=== PATIENT | female | born 1940 | race Caucasian/White ===

== ENCOUNTER 2016-07-26 12:34 | Day surgery (SDC) | payer MEDICARE, BC ==
--- OUTSIDE RECORDS SUMMARY | 2016-07-26 12:38 | XMS REPORT | Continuity of Care Document ---
:1940 Author Organization [facility] ([facility]) Address [address] [place] [address] Phone [phone] Care Team Providers Name Role Phone Hayde Singh Primary Care Provider [phone] Source Comments This disclosure is being made pursuant to the Care Everywhere program, applicable federal and state laws, and may not contain all informaitonavailable regarding this patient.[facility] ([facility]) Active Allergies and Adverse Reactions Allergen Noted Date Severity Reactions Comments Prochlorperazine Edisylate 11/20/2014 OTHER Current Medications Prescription Sig. Disp. Refills Start Date End Date Status amLODIPine 10 mg Take 1 Tab by 06/07/2011 Active tablet mouth daily aspirin, buffered 81 take 1 tablet 06/07/2011 Active mg tablet (81MG) by oral route every day atenolol 25 mg tablet Take 1 Tab by 02/11/2014 Active mouth daily estrogens, conjugated take 1 tablet by 02/12/2013 Active (PREMARIN) 0.3 mg oral route every tablet day furosemide 20 mg Take 1 Tab by 04/29/2014 Active tablet mouth daily levothyroxine 175 mcg 200 mcg take 1 02/12/2013 Active tablet tablet by oral route every day olmesartan (BENICAR) take 1 tablet 09/08/2009 Active 40 mg tablet (40MG) by ORAL route every day omeprazole (PriLOSEC take 1 capsule 06/07/2011 Active OTC) 20 mg EC tablet (40MG) by oral route every day before a meal beclomethasone (QVAR) inhale 2 puff by 02/12/2013 Active 80 mcg/Actuation inhalation route 2 inhaler times every day sulfaSALAzine 500 mg take 1 tablet 08/17/2009 Active tablet (500MG) by ORAL route 4 times every day after meals warfarin 5 mg tablet take 1 tablet 06/09/2011 Active (5MG) by oral route every day nitroglycerin 0.4 mg One tab under 25 tablet 5 03/30/2015 Active SL tablet tongue for chest pain; may repeat every 5 min up to total of 3 tabs isosorbide mononitrate Take 1 tablet (60 90 tablet 1 10/21/2015 Active (IMDUR) 60 mg CR mg total) by mouth tablet daily. atorvastatin (LIPITOR) Take 1 tablet (40 90 tablet 3 04/18/2016 Active 40 mg tablet mg total) by mouth daily. 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 Hyperlipidemia 12/07/2014 Chronic atrial fibrillation 12/07/2014 Social History Tobacco Use Types Packs/Day Years Used Date Former Smoker Quit: 04/02/2010 Last Filed Vital Signs Vital Sign Reading Time Taken Blood Pressure 140/70 02/09/2016 1:32 PM MICA MINER Pulse 64 02/09/2016 1:32 PM MICA MINER Temperature - - Respiratory Rate - - Height - - Weight 78.019 kg (172 lb) 02/09/2016 1:32 PM MICA MINER Body Mass Index - - Oxygen Saturation - - Plan of Care Date Type Specialty Providers Description 02/21/2017 Appointment Heart and Vascular Francisco Magana, Chief Comp: Patient MD Reported Reason For [address] Visit [place] [phone] (Fax) Health Maintenance Due Date Last Done Comments Hepatitis B Vaccine (1 of 3 - Primary Series) 1940 Tdap Vaccine 1952 Lipid Disorder Screening 08/27/1959 Td Vaccine 08/27/1959 Mammogram 1981 Colonoscopy 1991 Zoster Vaccine 2001 Osteoporosis Screening (DXA Bone Density) 2006 Pneumococcal Vaccine (1 of 2 - PCV13) 2006 Influenza Vaccine: Seasonal (#1) 11/01/2015 Results from Last 3 Months Not on file
--- NOTE | 2016-07-26 14:21 | OR ---
Operative Report - Dictated Report Narrative: Location: Main OR Anesthesia: None Preoperative Diagnosis: Gross hematuria Postoperative Diagnosis: Same Procedure: #1 flexible cystoscopy with washing for cytology Indications: 75-year-old female with gross hematuria. Presents for cystoscopy and cytology to evaluate bladder Description: Consent obtained. Placed in the frog-leg position. Prepped and draped. Time-out taken . Scope inserted into the urethra and navigated to the bladder. Introitus is narrow and urethra is slightly angulated. No tumors stones or suspicious lesions. pristine mucosa. No real trabeculation. Washing was obtained sent for cytology. Ureters normal in number and position Normal bladder neck Normal urethra with the exception of some angulation and some small plastic polyps which are benign EBL: 0 Specimen: none Condition: tolerate procedure Important Findings: Normal bladder. Slight angulation to urethra with some benign hyperplastic polyps. Narrowed introitus but otherwise normal sternal genitalia. FOLLOW UP: She will remain on tolterodine ER 4 mg. I will see her back in 6 weeks with urinalysis
[2016-07-26 14:24] LABS: Urine Bilirubin Negative (NEGATIVE); Urine Ketone Negative (NEGATIVE); Urine Nitrite Negative (NEGATIVE); Urine Protein Negative (NEGATIVE); Urine Urobilinogen Normal (NORMAL); Urine pH 5.5 pH (5.0-7.0)
[2016-07-26 14:26] VITALS: BP 118/79
[2016-07-26 14:41] LABS: Urine Appearance Clear; Urine Bacteria None Seen; Urine Blood 10 /ul (NEGATIVE); Urine Color Yellow; Urine RBC None Seen /hpf (0-5); Urine WBC None Seen /hpf (0-5)
== END 2016-07-26 12:35 | disposition home or self-care (01) ==
LOC: AMB 12:34
PROVIDERS: ATTEND Urology
PROC: 3E1K88X Irrigation of Genitourinary Tract using Irrigating Substance, Via Natural or Artificial Opening Endoscopic, Diagnostic (ICD-10-PCS; 2016-07-26)
PROC: 0TJB8ZZ Inspection of Bladder, Via Natural or Artificial Opening Endoscopic (ICD-10-PCS; principal; 2016-07-26 13:45)
DX: N36.2 Urethral caruncle (principal); R31.0 Gross hematuria; I10 Essential (primary) hypertension; E03.9 Hypothyroidism, unspecified; I48.91 Unspecified atrial fibrillation; Z87.891 Personal history of nicotine dependence

== ENCOUNTER 2017-01-01 18:43 | Emergency (ER) | payer MEDICARE, BC ==
[2017-01-01 20:13] LABS: Hematocrit 34.8 % (37.0-47.0); Hemoglobin 12.1 gm/dL (12.5-16.0); Mean Cell Volume 91.3 fl (78-100); Mean Corpuscular Hemoglobin 31.8 pg (27-31); Mean Corpuscular Hgb Conc 34.8 g/dl (32-36); Mean Platelet Volume 11.2 fl (6.0-9.5); Neutrophil # 3.6 K/mm3 (1.3-6.0); Neutrophil % 56.1 % (42-75.0); Platelet Count 153 K/mm3 (150-450); Red Blood Count 3.81 M/mm3 (4.2-5.4); Red Cell Distribution Width 12.5 % (11.5-14.0); White Blood Count 6.4 K/mm3 (4.0-10.5)
[2017-01-01 20:22] LABS: Prothrombin Time (Patient) 28.8 Seconds (9.4-11.4)
[2017-01-01 20:23] LABS: INR 2.77 INR (0.90-1.10)
[2017-01-01 20:30] LABS: ALT 40 U/L (19-67); AST 38 U/L (0-48); Albumin * 3.9 gm/dl (3.4-5.0); Alkaline Phosphatase * 72 U/L (50-170); Anion Gap 9.4 mmol/L (6.8-13.8); BUN/Creatinine Ratio 15.6 (9.0-21.6); Bilirubin, Total 0.4 mg/dL (0.0-1.1); Blood Urea Nitrogen 19 mg/dL (3-23); Ca. Corrected For Albumin 8.8 mg/dL (8.4-10.2); Carbon Dioxide 27.9 mmol/L (24-32.6); Chloride 104 mmol/L (97-106); Glucose * 102 mg/dL (70-110); Potassium 4.3 mmol/L (3.4-4.6); Sodium 137 mmol/L (132-142); Total Protein 7.3 gm/dL (6.2-8.2); Troponin I Less than 0.017 ng/ml (0.00-0.10)
--- NOTE | 2017-01-01 20:30 | ERNOTE ---
Medical Problem HPI - General Chief Complaint: General Assessment Time Seen by Provider: 01/01/17 20:17 Source: patient Exam Limitations: no limitations - Immun/Allergies/Home Medications Immunizations: IMMUNIZATION HX Immunizations Up to Date Yes History of Influenza Vaccine Yes Hx Pneumococcal Vaccination Yes Allergies/Adverse Reactions: Allergies metronidazole [From Flagyl] Allergy (Severe, Verified 01/01/17 19:09) unknown Metronidazole HCl [From Flagyl] Allergy (Severe, Verified 01/01/17 19:09) unknown prochlorperazine edisylate [From Compazine] Allergy (Severe, Verified 01/01/17 19:09) Anaphylaxis seizures prochlorperazine maleate [From Compazine] Allergy (Severe, Verified 01/01/17 19: 09) Anaphylaxis seizures Home Medications: HOME MEDICATIONS Aspirin 81 mg PO DAILY 01/01/17 [Last Taken Unknown] Atenolol [Tenormin] 25 mg PO BID 01/01/17 [Last Taken Unknown] Atorvastatin Calcium 40 mg PO HS 01/01/17 [Last Taken Unknown] Ca/D3/Mag Ox/Zinc/Energy Specialist/Xander/Bor [Calcium 600+D3 Plus Caplet] 1 each PO DAILY 05/19 [Last Taken Unknown] Estrogens, Conjugated [Premarin] 0.3 mg PO DAILY 01/01/17 [Last Taken Unknown] Furosemide 20 mg PO DAILY 01/01/17 [Last Taken Unknown] Isosorbide Mononitrate [Imdur] 60 mg PO DAILY 01/01/17 [Last Taken Unknown] Levothyroxine Sodium [Synthroid] 200 mcg PO DAILY 01/01/17 [Last Taken Unknown] Losartan Potassium [Cozaar] 100 mg PO DAILY 01/01/17 [Last Taken Unknown] Multivitamin [One Daily Multivitamin] 1 each PO DAILY 01/01/17 [Last Taken Unknown] Omeprazole 40 mg PO DAILY 01/01/17 [Last Taken Unknown] Warfarin Sodium [Coumadin] 4 mg PO Q48H 01/01/17 [Last Taken Unknown] Warfarin Sodium [Coumadin] 5 mg PO Q48H 01/01/17 [Last Taken Unknown] amLODIPine BESYLATE [Norvasc] 10 mg PO DAILY 01/01/17 [Last Taken Unknown] sulfaSALAzine [Azulfidine] 500 mg PO QID 01/01/17 [Last Taken Unknown] - History of Present History Narrative: Pt reports dizziness that began yesterday, feeling off balance and "swimmy" but not spinning. Worsened this afternoon and she presented to ED. Timing: getting worse Severity: moderate Modifying Factors - (Improves): Present: rest Modifying Factors - (Worsens): Present: movement Review of Systems - Review of Systems Constitutional: Absent: recent illness EYE: Absent: blurred vision ENT: Present: no symptoms reported Respiratory: Absent: shortness of breath Cardiology: Absent: chest pain, edema Gastrointestinal/Abdominal: Absent: nausea, vomiting Genitourinary: Present: no symptoms reported Musculoskeletal: Present: no symptoms reported Skin: Present: no symptoms reported Neurological: Present: See HPI, tingling - in her toes earlier today but resolved now. . Absent: numbness Endocrine: Present: no symptoms reported Hematologic/Lymphatic: Present: no symptoms reported Psych: Present: no symptoms reported - Patient's Past Medical History Patient History - Medical: Arthritis, Cataracts, Hypothyroidism, Other Patient History - Cardiac/Respiratory: Atrial Fibrillation, Hypertension Patient History - Cancer: No Hx of Cancer Patient History - Surgical Procedures: Appendectomy, Cataracts, Cholecystectomy , Colonoscopy, Hysterectomy, Other Patient History - Other: None - Family History Mother Family History - Medical: Arthritis Family History - Cardiac/Respiratory: COPD, Pneumonia - Social History Living Situations: spouse Abuse History: No History of abuse Psych History: No pertinent hx Smoking Status: Former smoker Have you smoked in the past 12 months: No Do you dip or chew tobacco: No Alcohol Use: none Drug Use: none - Immunizations Immunizations Up to Date: Yes Hx Pneumococcal Vaccination: Yes History of Influenza Vaccine: Yes Physical Exam - Physical Exam General Appearance: Present: wd/wn, alert, no apparent distress Head Exam: Present: normal inspection, no evidence of injury Eye Exam: Normal inspection: bilateral, PERRL: bilateral, EOMI: bilateral Neck: Present: normal inspection Respiratory: Present: no respiratory distress, normal breath sounds, no accessory muscle use, chest nontender, lungs clear Cardiovascular/Chest: Present: regular rate, rhythm, no murmur Back Exam: Present: normal inspection, normal range of motion Extremity Exam: Present: normal inspection, non-tender, normal range of motion Neurological Exam: Present: alert, oriented, normal mood/affect, no motor/ sensory deficits, 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 Results and Orders: Laboratory Tests 01/01/17 01/01/17 01/01/17 20:05 20:05 20:05 WBC 6.4 Hgb 12.1 L Hct 34.8 L Plt Count 153 PT 28.8 H INR (Anticoag Therapy) 2.77 H Sodium 137 Potassium 4.3 Chloride 104 Carbon Dioxide 27.9 BUN 19 Creatinine 1.22 Random Glucose 102 Calcium 9.0 Calcium Adj for Albumin 8.8 Total Bilirubin 0.4 AST 38 ALT 40 Alkaline Phosphatase 72 Troponin I Less than 0.017 Total Protein 7.3 Albumin 3.9 Laboratory Tests 01/01/17 20:05 TSH 4.025 H - Vital Signs Patient's Vital Signs:: I have reviewed the patient's vital signs. Vital Signs: Vital Signs 01/01/17 01/01/17 19:04 19:35 Temperature 36.9 C Pulse Rate 55 L 54 L Respiratory 16 19 Rate Blood Pressure 192/107 193/73 O2 Sat by Pulse 100 99 Oximetry - EKG EKG: atrial fibrillation - with SVR, no ST T wave changes EKG read: Interp. by me - X-Ray X-Ray #1 X-Ray: chest Interpretation: Interp. by me X-ray Comments: No acute cardiopulmonary abnormalities - Progress/Reassessment Chief Complaint: General Assessment Progress:: Unchanged Progress Note-Subjective: 01/01/17 22:35 discussed normal labs and other findings with the patient and her daughter. Discussed the fact that her blood pressure has been improving and her HR has been close to normal most of the time. Discussed the possibility of reducing her atenolol to 12.5 mg BID and pt stated that she is already only taking a half of a tab and just forgot to update that on her list. She has been taking that dose for a few months. I suggested she wait out the off balance feeling unless it worsens suddenly and she should return to the ED. If the symptoms persist for more than a week she should see her PCP. Pt expressed understanding and agreement Departure Clinical Impression: Atrial fibrillation Qualifiers: Atrial fibrillation type: chronic Qualified Code(s): I48.2 - Chronic atrial fibrillation Hypertension Qualifiers: Hypertension type: essential hypertension Qualified Code(s): I10 - Essential ( primary) hypertension - Departure Disposition: Home Follow Up Needed Condition: Fair Instructions: Vertigo, [id number], Hypertension, [id number], Atrial Fibrillation, [id number] Additional Instructions: Drink plenty of non-caffeinated fluids. See your primary care provider if not improving, return to the ER if you worsen especially if you have a sudden change. Referrals: Andrey Nunez MD [Primary Care Provider] -
[2017-01-01 22:28] VITALS: BP 176/74
== END 2017-01-01 22:10 | disposition home or self-care (01) ==
LOC: ER 18:43
DX: I48.2 Chronic atrial fibrillation (principal); I10 Essential (primary) hypertension; E03.9 Hypothyroidism, unspecified; Z79.01 Long term (current) use of anticoagulants; Z87.891 Personal history of nicotine dependence